=== PATIENT | female | born 1945 | race Caucasian/White ===

== ENCOUNTER 2017-03-02 05:16 | Inpatient (IN) | payer OTHER ==
[2017-02-09 14:56] VITALS: BMI 37.0
--- NOTE | 2017-02-09 15:32 | PAT Medication Instructions ---
Service Date Feb 09, 2017. Current Home Medication List Acetaminophen (Tylenol), 1,000 MG PO prn Aspirin (Aspirin Ec), 81 MG PO QPM Calcium Carbonate-Vitamin D (Calcium + D), 1 TAB PO BID Letrozole (Femara), 2.5 MG PO QPM Oxycodone Ir (Roxicodone Ir), 5 MG PO BID PRN for rn Zolpidem Tartrate (Zolpidem Tartrate), 1 TAB PO HS [vicks nasal spray], 2 SPRAYS INTNAS prn Medication Instructions For Your Scheduled Surgery - Hold the following medications the morning of surgery: Calcium Carbonate-Vitamin D (Calcium + D), 1 TAB PO BID - Take the following medications the morning of surgery with a sip of water: [vicks nasal spray], 2 SPRAYS INTNAS prn (if needed) Oxycodone Ir (Roxicodone Ir), 5 MG PO BID PRN (can take if needed up to four hours before surgery) Acetaminophen (Tylenol), 1,000 MG PO prn (can take if needed up to four hours before surgery) - Take the following medications as scheduled the night before surgery: [vicks nasal spray], 2 SPRAYS INTNAS prn Letrozole (Femara), 2.5 MG PO QPM Zolpidem Tartrate (Zolpidem Tartrate), 1 TAB PO HS Aspirin (Aspirin Ec), 81 MG PO QPM Calcium Carbonate-Vitamin D (Calcium + D), 1 TAB PO BID OTHERWISE NOTHING TO EAT OR DRINK AFTER MIDNIGHT If you have any questions please call us at [phone] or [phone] or [phone]
[2017-02-09 16:13] LABS: BASO % 0.4 %; BASO ABS # 0.03 K/uL (0-0.2); COMPLETE YES; EOS % 2.5 %; HEMATOCRIT 39.5 % (37-47); IG% 0.3 %; LYMPH % 20.4 %; LYMPH ABS # 1.39 K/uL (1.2-3.4); MEAN CELL VOLUME 90.4 fL (80-100); MEAN CORPUSCULAR HEMOGLOBIN 30.4 pg (25-34); MEAN CORPUSCULAR HGB CONC 33.7 g/dl (32-36); MEAN PLATELET VOLUME 10.6 fL (7.4-10.4); MONO % 5.6 %; NEUT % 70.8 %; PLATELET COUNT 228 K/uL (130-400); RED BLOOD COUNT 4.37 M/uL (4.2-5.4); WHITE BLOOD COUNT 6.82 K/uL (4.8-10.8)
[2017-02-09 16:22] LABS: PARTIAL THROMBOPLASTIN RATIO 0.9; PROTHROMBIN TIME (PATIENT) 10.3 SECONDS (9.0-12.0)
[2017-02-09 16:25] LABS: BUN/CREATININE RATIO 23.5 (10-20); CALCIUM 9.7 mg/dl (8.5-10.1); CREATININE 0.68 mg/dl (0.60-1.20); POTASSIUM 4.2 mmol/L (3.5-5.1)
--- NOTE | 2017-02-09 16:26 | DIAGNOSTIC IMAGING REPORT ---
TWO VIEW CHEST CLINICAL HISTORY: Preoperative examination. FINDINGS: PA and lateral chest radiographs are obtained. No prior studies are available for comparison at the time of dictation. A right internal jugular central venous infusion port is in place. The cardiomediastinal silhouette is unremarkable. There is minimal left basilar atelectasis. Scarring versus atelectasis is also seen at the left apex. The lungs and pleural spaces are otherwise clear. There is no pneumothorax. The skeletal structures are osteopenic. Degenerative change is noted in the shoulders and thoracic spine. Surgical clips are seen in the left axilla. IMPRESSION: No active disease in the chest. Electronically signed by: Matt Garcia M.D. 02/09/2017 4:25 PM Dictated Date/Time: 02/09/2017 4:24 PM
[2017-02-09 16:37] LABS: ESTIMATED AVERAGE GLUCOSE 105 mg/dl; HA1C FLAG Normal (Normal)
[~2017-03-02] VITALS: Ht 157.5 cm; Wt 91.6 kg
[2017-03-02] VITALS (8 sets, daily range): BP systolic 112–151; BP diastolic 61–75; PULSE 65–88; TEMP 36.2–37.1; O2SAT 94–98; Ht 157.5 cm; Wt 91.6 kg
[~2017-03-02 05:16] MED LIST: ACET-1256 PO; ASPI81TA28 PO; CALC600T9 PO; FMR25 PO; OXYC1TAB3 PO; VICKS INTNAS; ZOLP5TAB6 PO
[2017-03-02] MEDS ORDERED: DEXAMETHASONE 4 MG TAB PO SCH (06:00)
[2017-03-02] MEDS ORDERED: CEFAZOLIN 2000MG IV PUSH 10 ML IV SCH (06:00)
[2017-03-02] MEDS ORDERED: METOCLOPRAMIDE HCL 10 MG TAB PO SCH (06:00)
[2017-03-02] MEDS ORDERED: LACTATED RINGER'S 1000ML IV SCH (06:00)
[2017-03-02] MEDS ORDERED: FAMOTIDINE 20 MG TAB PO SCH (06:00)
[2017-03-02] MEDS ORDERED: LACTATED RINGER'S 1000ML 500 ML IV SCH (06:00)
[2017-03-02] MEDS ORDERED: CeleBREX 200 MG CAP PO SCH (06:00)
[2017-03-02] MEDS ORDERED: LACTATED RINGER'S 1000ML 1,000 ML IV SCH (06:00)
[2017-03-02] MEDS ORDERED: ACETAMINOPHEN 500 MG TAB PO SCH (06:00)
[2017-03-02] MEDS ORDERED: ROPIVACAINE 5MG/ML 30 ML 150 MG, BUPIVACAINE 0.5% MPF INJ 30 ML, EpINEphrine HCL INJ 0.... INFIL SCH ×8 (06:00)
[2017-03-02] MEDS ORDERED: GABAPENTIN 300 MG CAP PO SCH (06:00)
[2017-03-02] MEDS ORDERED: BUPIVACAINE 0.25% 30 ML VIAL ONE (06:28)
[2017-03-02] MEDS ORDERED: BUPIVACAINE 0.5 % 5 MG/1 ML PF 10ML VIAL ONE (06:28)
[2017-03-02] MEDS ORDERED: DEXAMETHASONE SOD INJ 4 MG/ML VIAL ONE (06:29)
[2017-03-02] MEDS ORDERED: EpINEphrine INJ 1MG/ML AMP 1 MG/ML AMP ONE (06:29)
[2017-03-02] MEDS: TRANEXAMIC ACID INJ 1,000 MG in SYRINGE 0 ML IV SCH ×2 (06:30→07:43)
[2017-03-02] MEDS ORDERED: FENTANYL CITRATE INJ 50 MCG/1 ML 2 ML VIAL ONE (06:49)
[2017-03-02] MEDS ORDERED: MIDAZOLAM HCL 1 MG/ML 2ML VIAL ONE ×2 (06:51→08:27)
[2017-03-02] MEDS ORDERED: BACITRACIN 50000 UNIT VIAL ONE (06:52)
[2017-03-02] MEDS ORDERED: POVIDONE-IODINE OP SOLN 30 ML BTL ONE (06:52)
[2017-03-02] MEDS ORDERED: ORTHO JOINT ANESTHETIC ONE (06:52)
--- NOTE | 2017-03-02 07:04 | History and Physical ---
History & Physical Date Mar 02, 2017. Chief Complaint Patient presents 72year-old white female 5 foot 290 pounds severe end-stage DJD valgus knee for left total knee arthroplasty after failing attempts at conservative management History of Present Illness The patient is a 71 year old female with complaints of ongoing left knee pain failing attempts at injections corticosteroid injections viscous supplementations relative rest activity modification Additional History Hepatic Disease: No Endocrine Disorder: No Kidney Disease: No Hypertension: No Heart Disease: No Bleeding Tendencies: No Infectious Diseases: No Allergies Coded Allergies: Diphenhydramine (Verified Allergy, Unknown, tachycardia, 02/09/17) Home Medications Scheduled Acetaminophen (Tylenol), 1,000 MG PO prn Aspirin (Aspirin Ec), 81 MG PO QPM Calcium Carbonate-Vitamin D (Calcium + D), 1 TAB PO BID Letrozole (Femara), 2.5 MG PO QPM Zolpidem Tartrate (Zolpidem Tartrate), 1 TAB PO HS [vicks nasal spray], 2 SPRAYS INTNAS prn Scheduled PRN Oxycodone Ir (Roxicodone Ir), 5 MG PO BID PRN for rn Physical Examination Skin: warm/dry, no rash Eyes: normal inspection, EOMI, sclerae normal ENT: normal ENT inspection, pharynx normal Head: normocephalic, atraumatic Neck: supple, no adenopathy, trachea midline Respiratory/Chest: lungs clear, normal breath sounds, no respiratory distress Cardiovascular: regular rate, rhythm, no edema, no murmur Abdomen / GI: normal bowel sounds, non tender Back: normal inspection Extremities: normal inspection, normal range of motion, + pertinent finding ( valgus alignment left knee was severe end-stage DJD) Neurologic/Psych: no motor/sensory deficits, alert, normal reflexes, oriented x 3 Diagnosis Patient presents with severe end-stage tricompartmental degenerative joint disease with valgus alignment left knee for left total knee arthroplasty after failing times a conservative management Plan of Treatment Total knee arthroplasty postoperative pain management DVT prophylaxis antibiotics
--- NOTE | 2017-03-02 07:09 | History & Physical Bridge Note ---
H&P Re-Evaluation Bridge Note: I have examined the patient, reviewed the History & Physical and in the interval since the performance of the History & Physical I have noted the following changes of clinical significance: No changes noted
[2017-03-02] MEDS ORDERED: PROPOFOL IV EMULSION 10 MG/ML 20 ML VIAL IV ONE (07:19)
[2017-03-02] MEDS ORDERED: ATROPINE SULFATE 0.1 MG/ML 5ML SYR IV PRN (08:30)
[2017-03-02] MEDS ORDERED: ONDANSETRON INJ 2 MG/ML 2 ML VIAL IV PRN ×2 (08:30→10:15)
[2017-03-02] MEDS ORDERED: EpHEDrine SULFATE INJ 50 MG/ML AMP IV PRN (08:30)
[2017-03-02] MEDS ORDERED: LIDOCAINE HCL 2% 2 ML VIAL (20MG/ML) ONE (09:21)
--- NOTE | 2017-03-02 09:28 | [facility] Operative Report ---
Operative Report Operative Date Mar 02, 2017. Pre-Operative Diagnosis severe end-stage tricompartmental degenerative joint disease with valgus alignment left knee Post-Operative Diagnosis SAME Procedure(s) Performed Left Total Knee Arthroplasty [facility] matched total knee arthroplasty size 4 femur 3 tibia 15 constrained poly-[address] Watters Family Nurse Surgeon(s) Loan Dumont PA-C Estimated Blood Loss 5 ML Findings Severe end-stage degenerative joint disease with subchondral cystic formation osteophytes sclerosis significant valgus malalignment valgus instability Specimens a. left knee bone and tissue Complication(s) None Disposition Recovery Room / PACU Indications Patient presents with severe end-stage tricompartmental degenerative joint disease with valgus alignment subchondral cystic changes sclerosus osteophytes patient's failed attempts at conservative management including bracing and anti- inflammatories injections presents for total knee arthroplasty Description of Procedure After proper prepping and draping of the left lower extremity anterior midline incision was made over the region of the extensor extensor mechanism after meticulous hemostasis was obtained and maintained in subcutaneous tissues a medial parapatellar incision was made The patella was subluxed lateralward the medial lateral gutter were cleaned from any hypertrophic synovitis and scar tissue of the distal femoral block was placed and the distal femoral osteotomy cut was made subsequently the chamfers anterior and posterior osteotomy cuts were made utilizing the 4-in-1 block the tibia was subsequently subluxed anteriorward medial and ateral meniscal remnants were excised in their entirety remnants of the anterior and posterior cruciate ligaments were excised in their entirety excellent exposure of the proximal tibia was obtained the tibial osteotomy guide was placed on the proximal tibial osteotomy cut was made once again the knee was irrigated with copious amounts of sterile saline solution the patella was subsequently everted lateralward thickened scar tissue around the patella was removed the patella was subsequently cut utilizing a freehand technique and was drilled prepared for final preparation and placement of patella socially flexion-extension gaps were checked and the equal and symmetric trials were placed to the appropriate femoral and tibial trials with poly-spacer being placed for equal flexion and extension gaps and full range of motion including extension to 0 and flexion to 140 the trial components after having been taken to recovery range of motion was subsequently removed meticulous hemostasis was obtained and maintained subsequently a knee block injection of joint cocktail including ropivacaine 0.5% 150 mg. Bupivacaine 0.5 % epinephrine 1-200,030 mL's toradol 30 mg dexamethasone 4 mg ketamine 10 mg clonidine 100 micrograms normal saline solution 30 mg was infiltrated into the soft tissues of the posterior knee medial lateral gutters and periosteal synovium special attention was paid to protect neurovascular structures at all times subsequently trial components having been removed the knee was irrigated with sterile saline solution. debris was removed the proximal tibia was subsequently prepared and was made ready for the placement of the tibial component tibial component was also cemented and tamped into position the femoral component was subsequently placed and cemented in the position the patellar component was subsequently cemented in position because hemostasis once again obtained and maintained wound having been thoroughly irrigated with debridement and debridement lavage was performed as well as a medial parapatellar incision closed with #1 Vicryl in interrupted fashion subcutaneous was closed with #2 Vicryl skin was closed with skin clips. PA-C was necessary for prepping and drapping as well as wound closure of deep fascia Sub cutaneous tissue and skin and was necessary for the case. A sterile compressive dressing was placed patient was taken to recovery in stable condition of report dictated by Duong I attest to the content of the Intraoperative Record and any orders documented therein. Any exceptions are noted below. I attest to the content of the Intraoperative Record and any orders documented therein. Any exceptions are noted below.
[2017-03-02] MEDS ORDERED: SOD PHOSPHATE/SOD BIPHOSPHATE ENEMA 132 ML BTL PR PRN (10:15)
[2017-03-02] MEDS ORDERED: TRAMADOL HCL 50 MG TAB PO PRN (10:15)
[2017-03-02] MEDS ORDERED: ZOLPIDEM TARTRATE 5 MG TAB PO PRN (10:15)
[2017-03-02] MEDS ORDERED: MoRPHine SULFATE 2 MG/ML CARP IV PRN (10:15)
[2017-03-02] MEDS ORDERED: MAGNESIUM HYDROXIDE SUSP 30 ML UDC PO PRN (10:15)
[2017-03-02] MEDS ORDERED: BISACODYL 10 MG SUPP PR PRN (10:15)
[2017-03-02] MEDS ORDERED: ALUMINUM/MAGNESIUM/SIMETH (MAALOX MAX) 30 ML UDC PO PRN (10:15)
--- NOTE | 2017-03-02 10:50 | Anesthesiology Progress Note ---
Anesthesia Post Op Note Date & Time Mar 02, 2017 at 10:50 Vital Signs Pain Intensity: 0 Vital Signs Past 12 Hours Date Time Temp Pulse Resp B/P (MAP) Pulse Ox O2 Delivery O2 Flow Rate FiO2 03/02/17 10:40 36.2 65 16 113/58 99 Nasal Cannula 2 03/02/17 10:30 66 16 121/58 100 Nasal Cannula 2 03/02/17 10:20 66 16 121/57 98 Nasal Cannula 2 03/02/17 10:10 67 16 118/58 100 Oxymask 10 03/02/17 10:02 36.3 73 16 108/51 94 Oxymask 10 03/02/17 06:56 37.1 76 20 151/75 97 Room Air Notes Mental Status: alert / awake / arousable, participated in evaluation Pt Amnestic to Procedure: Yes Nausea / Vomiting: adequately controlled Pain: adequately controlled Airway Patency, RR, SpO2: stable & adequate BP & HR: stable & adequate Hydration State: stable & adequate Neuraxial Anesthesia: was administered, sensory block is resolving Anesthetic Complications: no major complications apparent
--- NOTE | 2017-03-02 11:03 | DIAGNOSTIC IMAGING REPORT ---
L KNEE 1 OR 2 VIEWS ROUTINE HISTORY: 71 years-old Female AP/LATERAL IN PACU LEFT KNEE status post left knee total joint arthroplasty. Left knee degenerative joint disease. COMPARISON: None available TECHNIQUE: 2 views of the left knee FINDINGS: The bones appear mildly demineralized. Postoperative changes compatible with recent total joint arthroplasty and patellar resurfacing. Expected postsurgical soft tissue swelling and deep tissue air about the knee. No periprosthetic fracture, malalignment or retained foreign body. Surgical drain is in place. IMPRESSION: Status post left knee total joint arthroplasty and patellar resurfacing without complication identified. The above report was generated using voice recognition software. It may contain grammatical, syntax or spelling errors. Electronically signed by: Asif Alexandra M.D. 03/02/2017 11:01 AM Dictated Date/Time: 03/02/2017 11:00 AM
[2017-03-02] MEDS: D5W AND 1/2NSS + 20MEQ KCL 1,000 ML IV SCH ×2 (12:12→21:36)
[2017-03-02] MEDS: KETOROLAC TROMETHAMINE 15 MG/ML VIAL IV. SCH ×3 (12:53→23:28)
[2017-03-02] MEDS: ACETAMINOPHEN 500 MG TAB PO SCH ×2 (13:55→21:36)
[2017-03-02] MEDS ORDERED: NURSING VERBAL MED ORDER ONE (15:15)
[2017-03-02] MEDS ORDERED: CEFAZOLIN IV 2,000 MG in DEXTROSE 5% 50ML 50 ML IV SCH (16:00)
[2017-03-02] MEDS: OXYCODONE HCL IR 5 MG TAB (IMMEDIATE RELEASE) PO PRN ×2 (16:09→21:34)
[2017-03-02] MEDS: CEFAZOLIN IV 2,000 MG in SYRINGE 0 ML IV SCH ×2 (16:09→23:27)
[2017-03-02] MEDS: LETROZOLE 2.5 MG TAB PO SCH (18:09)
[2017-03-02] MEDS ORDERED: LETROZOLE 2.5 MG TAB PO SCH (21:00)
[2017-03-02] MEDS: ASPIRIN 81 MG ECTAB PO SCH (21:35)
[2017-03-02] MEDS: SENNA 8.6 MG TAB PO SCH (21:36)
[2017-03-03 03:15] VITALS: BP 123/71; PULSE 70; TEMP 36.4; O2SAT 96
[2017-03-03] MEDS: ACETAMINOPHEN 500 MG TAB PO SCH ×3 (05:29→21:18)
[2017-03-03] MEDS: KETOROLAC TROMETHAMINE 15 MG/ML VIAL IV. SCH (05:29)
[2017-03-03 06:54] LABS: HEMATOCRIT 33.2 % (37-47); MEAN CELL VOLUME 91.7 fL (80-100); MEAN CORPUSCULAR HEMOGLOBIN 30.4 pg (25-34); MEAN CORPUSCULAR HGB CONC 33.1 g/dl (32-36); MEAN PLATELET VOLUME 10.8 fL (7.4-10.4); PLATELET COUNT 217 K/uL (130-400); RED BLOOD COUNT 3.62 M/uL (4.2-5.4); WHITE BLOOD COUNT 12.81 K/uL (4.8-10.8)
[2017-03-03] MEDS ORDERED: DEXAMETHASONE 4 MG TAB PO ONE (07:30)
[2017-03-03] MEDS: D5W AND 1/2NSS + 20MEQ KCL 1,000 ML IV SCH (07:33)
[2017-03-03 07:36] LABS: BUN/CREATININE RATIO 29.5 (10-20); CALCIUM 9.7 mg/dl (8.5-10.1); CREATININE 0.63 mg/dl (0.60-1.20); POTASSIUM 4.4 mmol/L (3.5-5.1)
[2017-03-03 07:38] VITALS: BP 120/68; PULSE 60; TEMP 36.4; O2SAT 95
[2017-03-03 07:56] VITALS: O2SAT 95
--- NOTE | 2017-03-03 07:59 | Orthopedic Progress Note ---
Orthopedic Progress Note Date of Service Mar 03, 2017. Subjective Post OP Day: 1 Reports: feeling well, Denies: complaints Objective calves soft nontender, N/V intact, dressing C/D/I, A&O x3, toes mobile, hemovac drainage (150ML LATEST SHIFT) Date Time Temp Pulse Resp B/P (MAP) Pulse Ox O2 Delivery O2 Flow Rate FiO2 03/03/17 07:38 36.4 60 17 120/68 (85) 95 Room Air 03/03/17 07:28 Room Air 03/03/17 03:15 36.4 70 18 123/71 (88) 96 Room Air 03/02/17 23:09 36.6 74 16 131/74 (93) 96 Room Air 03/02/17 19:33 36.2 88 17 119/69 (86) 94 Room Air 03/02/17 19:15 Room Air 03/02/17 15:36 36.6 74 17 122/68 (86) 96 Nasal Cannula 2.0 03/02/17 12:57 36.4 69 16 113/69 (84) 97 Nasal Cannula 2.0 03/02/17 11:57 36.2 66 17 112/70 (84) 98 Nasal Cannula 2.0 03/02/17 11:27 71 19 116/70 (85) 96 Nasal Cannula 2.0 03/02/17 11:00 96 Nasal Cannula 2.0 03/02/17 11:00 36.4 65 16 115/61 (79) 96 Nasal Cannula 2.0 03/02/17 11:00 Nasal Cannula 2.0 03/02/17 10:50 36.2 63 16 123/60 97 Nasal Cannula 2 03/02/17 10:40 36.2 65 16 113/58 99 Nasal Cannula 2 03/02/17 10:30 66 16 121/58 100 Nasal Cannula 2 03/02/17 10:20 66 16 121/57 98 Nasal Cannula 2 03/02/17 10:10 67 16 118/58 100 Oxymask 10 03/02/17 10:02 36.3 73 16 108/51 94 Oxymask 10 Laboratory Results 24 Hours: Test 03/03/17 06:17 Hematocrit 33.2 % Hemoglobin 11.0 g/dL Assessment & Plan Assessment: POD 1 S/P LEFT TKA Plan: PT/OT PLANNING FOR OPPT PT DVT PROPH - ASA BID PAIN CONTROL -OXYIR, TYLENOL,TRAMADOL,CELEBREX, MORPHINE Discharge Planning Discharge Planning: home with oppt
--- NOTE | 2017-03-03 08:08 | Discharge Instructions ---
Discharge Instructions Date of Service Mar 03, 2017. Admission Reason for Admission: Left Knee Osteoarthritis Discharge Discharge Diagnosis / Problem: Djd Left Knee Discharge Goals Goal(s): Decrease discomfort, Improve function, Increase independence Activity Recommendations Activity Limitations: per Instructions/Follow-up section Weightbearing Status: Left weightbearing (as tolerated) . Instructions / Follow-Up Instructions / Follow-Up ACTIVITY RECOMMENDATIONS: SELF CARE INSTRUCTIONS AFTER TOTAL KNEE REPLACEMENT A. You may need to continue a physical therapy program after discharge from the hospital. There are several options available to you. Your doctor will assist you in selecting the best one for you. 1. An out-patient facility 2 to 3 times a week for therapy or home therapy. 2. Continue working on all exercises taught to you in the hospital. Your goals should be to increase bending of your knee to 90 degrees and beyond and to fully straighten your knee. B. You may progress at your own pace from walking with a walker or crutches to a cane; then to no assistive devices. C. Make walking a part of your daily routine. Be up as much as comfortable with rest periods throughout the day. Rest with leg elevation is very important. Use the ice wrap frequently for the first 3-4 weeks. D. There are no restrictions on activities. You may ride in a car, shop, participate in pipe and tank fabricator and all social activities. E. Wear the long elastic stockings (MARANDA hose) 20 hours a day for 2 weeks after surgery. They can be removed several times a day for laundering and for a bath. F. You may shower, no tub baths until cleared by your doctor. SPECIAL CARE INSTRUCTIONS: VERY IMPORTANT TO READ AND REVIEW A. There are a few signs you need to watch for after you are home. Call [facility] if you notice any of the followin. Increased severe knee pain. Some pain is expected especially when you exercise. 2. Increased swelling in your leg or knee; pain or swelling of the calf muscle in either lower leg. 3. Any fluid drainage from the incision. 4. Shortness of breath or chest pain. B. Please call [facility] at if you have any concerns or questions about your operation or recovery. The doctor or his nurse will return your call promptly. C. You must take antibiotics before dental work, bladder, bowel or other surgery. Your doctor will provide you with a permanent care to carry describing this precaution. IMPORTANT: * REMEMBER TO TAKE ASPIRIN, 81 MG, TWICE DAILY FOR 4 WEEKS UNLESS OTHERWISE DIRECTED. THIS IS YOUR BLOOD THINNER. * HIGH RISK PATIENTS MAY BE PRESCRIBED A STRONGER BLOOD THINNER. THIS WILL BE PROVIDED AT DISCHARGE. * CALL IF INCREASED PAIN, REDNESS, DRAINAGE OR FEVER GREATER THAT 101. * WEAR MARANDA HOSE 20 HOURS PER DAY FOR 2 WEEKS. * Dressings: DERMABOND Prineo- This is a mesh tape dressing that is covered with glue. It should remain in place until the incision is properly healed, usually 10-14 days. This dressing is designed to naturally slough off. You may trim the excess mesh tape as it peels off. Incision may be briefly wet in a shower. Dry immediately by blotting with a clean, dry towel. Do not bath or swim until instructed by your doctor. Do not scratch, rub, or pick at the dressing. Do not apply any topical ointments or lotions until dressing is completely removed and/or instructed by your doctor. There may be a small piece of suture material at one end of your incision. Do not pull or trim this. If it is bothersome or catching on clothing, you may cover it with a band-aid. . FOLLOW UP VISIT: If appointment is not already scheduled: Please call [facility] to make a follow-up appointment for 2 weeks after your surgery at . Current Hospital Diet Patient's current hospital diet: Regular Diet Discharge Diet Recommended Diet: Regular Diet Procedures Procedures Performed: Left Total Knee Arthroplasty utilizing [employer] [place] 2 patient matched total knee arthroplasty size 4 femur 3 tibia 15 constrained poly-29 oval patella Pending Studies Studies pending at discharge: no Laboratory Results Hemoglobin A1c Test 02/09/17 15:46 Range/Units Estimated Average Glucose 105 mg/dl Hemoglobin A1c 5.3 4.5-5.6 % Medical Emergencies . Who to Call and When: Medical Emergencies: If at any time you feel your situation is an emergency, please call 911 immediately. . Non-Emergent Contact Non-Emergency issues call your: Surgeon Call Non-Emergent contact if: temperature is above 101.5, your pain is not controlled, your pain is worsening, wound has increased drainage, wound has increased redness . "Provider Documentation" section prepared by Duane Larsen. . VTE Core Measure Inpt VTE Proph given/why not?: Other Anticoagulation, T.E.Monty Sylvester, SCD's [place] Drug Monitoring Program Search Results: patient reviewed within database, see additional documentation Drug Monitoring Findings: Pt receiving narcotics from PCP in [place]. Last RX filled 02/21/17 for 20 days. Pt will need to return there after post operative period if more narcotics needed.
[2017-03-03] MEDS: ASPIRIN 81 MG ECTAB PO SCH ×2 (09:21→21:16)
[2017-03-03] MEDS: MULTIVITAMIN TAB PO SCH (09:21)
[2017-03-03] MEDS: PANTOprazole SOD 40 MG TAB PO SCH (09:21)
[2017-03-03] MEDS: OXYCODONE HCL IR 5 MG TAB (IMMEDIATE RELEASE) PO PRN ×2 (10:11→15:24)
[2017-03-03 11:21] VITALS: BP 142/78; PULSE 75; TEMP 36.7; O2SAT 94
[2017-03-03 13:13] VITALS: BP 155/81; PULSE 76; O2SAT 96
[2017-03-03] MEDS: LETROZOLE 2.5 MG TAB PO SCH (14:32)
[2017-03-03 15:10] VITALS: BP 145/73; PULSE 72; TEMP 36.7; O2SAT 94
[2017-03-03] MEDS: SENNA 8.6 MG TAB PO SCH (21:17)
[2017-03-03] MEDS: CeleBREX 200 MG CAP PO SCH (21:18)
[2017-03-04] MEDS: OXYCODONE HCL IR 5 MG TAB (IMMEDIATE RELEASE) PO PRN ×4 (00:54→12:41)
[2017-03-04] MEDS: ACETAMINOPHEN 500 MG TAB PO SCH (05:54)
--- NOTE | 2017-03-04 07:12 | Orthopedic Progress Note ---
Orthopedic Progress Note Date of Service Mar 04, 2017. Subjective Post OP Day: 2 Denies: complaints Objective calves soft nontender, N/V intact, incision C/D/I, A&O x3, toes mobile Date Time Temp Pulse Resp B/P (MAP) Pulse Ox O2 Delivery O2 Flow Rate FiO2 03/03/17 20:15 Room Air 03/03/17 15:10 36.7 72 16 145/73 (97) 94 Room Air 03/03/17 13:13 76 96 03/03/17 11:21 36.7 75 18 142/78 (99) 94 Room Air 03/03/17 07:56 95 Room Air 03/03/17 07:38 36.4 60 17 120/68 (85) 95 Room Air 03/03/17 07:28 Room Air Assessment & Plan Assessment: POD 2 S/P LEFT TKA Plan: PT/OT PLANNING FOR OPPT PT DVT PROPH - ASA BID PAIN CONTROL -OXYIR, TYLENOL,TRAMADOL,CELEBREX, MORPHINE PLAN FOR DC TO HOME TODAY Discharge Planning Discharge Planning: home with oppt
[2017-03-04] MEDS ORDERED: CLB200 PO (07:15)
[2017-03-04] MEDS ORDERED: ACET-1256 PO (07:15)
[2017-03-04] MEDS ORDERED: ASPI81TA28 PO (07:15)
[2017-03-04] MEDS ORDERED: SENN1TAB80 PO (07:15)
[2017-03-04] MEDS ORDERED: OXYC1TAB3 PO (07:15)
[2017-03-04 07:18] VITALS: BP 125/72; PULSE 61; TEMP 36.6; O2SAT 97
[2017-03-04] MEDS: ASPIRIN 81 MG ECTAB PO SCH (08:46)
[2017-03-04] MEDS: MULTIVITAMIN TAB PO SCH (08:46)
[2017-03-04] MEDS: PANTOprazole SOD 40 MG TAB PO SCH (08:46)
[2017-03-04] MEDS: CeleBREX 200 MG CAP PO SCH (08:47)
[2017-03-04 10:50] VITALS: BP 125/72; PULSE 61; TEMP 36.6; O2SAT 97
== END 2017-03-04 14:00 | disposition home health service (06) | DRG 470 ==
LOC: C.ACU 05:16 → C.3E 10:05 → ENRESERV 10:33
PROVIDERS: ADMIT Orthopaedic Surgery; ATTEND Orthopaedic Surgery
PROC: 0SRU0J9 Replacement of Left Knee Joint, Femoral Surface with Synthetic Substitute, Cemented, Open Approach (ICD-10-PCS; principal; 2017-03-02 08:15)
DX: M17.12 Unilateral primary osteoarthritis, left knee (principal)